=== PATIENT | female | born 1995 | race Caucasian/White ===

== ENCOUNTER 2016-07-11 15:02 | Outpatient (CLI) | payer MEDICAID ==
[~2016-07-11] VITALS: Ht 160 cm; Wt 111.6 kg
[2016-07-11 15:26] VITALS: Ht 160 cm; Wt 111.6 kg
[2016-07-11 15:53] LABS: ADD UMIC YES; URINE BILIRUBIN (Dip) NEGATIVE (NEGATIVE); URINE BLOOD (Dip) NEGATIVE (NEGATIVE); URINE KETONES (Dip) 15 (NEGATIVE); URINE LEUKOCYTE ESTERASE (Dip) 3+ (NEGATIVE); URINE NITRITE (Dip) NEGATIVE (NEGATIVE); URINE TOTAL PROTEIN (Dip) NEGATIVE (NEGATIVE); URINE UROBILINOGEN (Dip) 0.2 E.U./dL (0.1-1.0)
[2016-07-11 16:09] LABS: URINE COLOR YELLOW (YELLOW)
[2016-07-11 16:12] LABS: BACTERIA,URINE MODERATE; SQUAMOUS EPITHELIAL CELL,UR MANY; URINE RBCS NONE SEEN /HPF (0)
--- NOTE | 2016-07-11 16:41 | RADRPT ---
PROCEDURE: US evaluation of amniotic fluid volume. CLINICAL INDICATION: labor at 28 weeks gestational age. TECHNIQUE: Multiple sonographic images of the gravid uterus were obtained utilizing solis-scale luanne ging. Sagittal and transverse images were obtained. The cervix was evaluated with endovaginal sonog sola. The images were reviewed on a PACS workstation. ANDREA was measured. COMPARISON: No prior studies are available for comparison. FINDINGS: There is a single live intrauterine . heart rate is 148 beats per minute. Position is cephalic. Placenta is fundal left grade 1 with no abruption or previa. ANDREA is 22.9 cm. (Normal = 5-20 cm.) Endovaginal cervical length measurement is 4.9 cm. IMPRESSION: 1. ANDREA is 22.9 cm. 2. Endovaginal cervical length is 4.9 cm. RPTAT: QQ .Brock Fernando MD, MD Date Time Electronically viewed and signed by .Brock Fernando MD, on 07/11/2016 16:41 .R/
[2016-07-11] MEDS ORDERED: CEFTRIAXONE 1 GM INJ IM ONE (17:30)
== END 2016-07-11 19:05 | disposition home or self-care (01) ==
LOC: L-D 15:02 → OBT 15:02
PROVIDERS: ATTEND Obstetrics & Gynecology
DX: O60.03 Preterm labor without delivery, third trimester (principal); Z3A.29 29 weeks gestation of pregnancy
CPT/HCPCS: 76815; 76817; 81001; 81003; 82731; J0696

== ENCOUNTER 2016-07-28 12:06 | Outpatient (CLI) | payer MEDICAID ==
[~2016-07-28] VITALS: Ht 160 cm; Wt 111.9 kg
[2016-07-28 12:19] VITALS: Ht 160 cm; Wt 111.9 kg
[2016-07-28] MEDS ORDERED: FERR134T PO (12:22)
[2016-07-28 13:13] LABS: INR 0.95; PROTIME 12.7 Sec (12.2-14.2)
[2016-07-28 13:14] LABS: PARTIAL THROMBOPLASTIN TIME 25.4 Sec (25.0-35.0)
[2016-07-28 13:15] LABS: POTASSIUM 3.6 mmol/L (3.5-5.1)
[2016-07-28 13:17] LABS: BILIRUBIN,INDIRECT 0.3 mg/dl (0-1.1); BILIRUBIN,TOTAL 0.3 mg/dl (0.2-1.3); CREATININE 0.43 mg/dl (0.44-1.00)
[2016-07-28 13:18] LABS: CALCIUM 8.7 mg/dl (8.4-10.2); URIC ACID 2.7 mg/dl (3.1-7.9)
--- NOTE | 2016-07-28 13:26 | RADRPT ---
PROCEDURE: US OB biophysical profile. CLINICAL INDICATION: decreased movements, PIH TECHNIQUE: Multiple sonographic images of the pelvis were obtained. The images were reviewed on a PACS workstation. COMPARISON: 07/11/16 FINDINGS: There is a single viable intrauterine gestation. Cardiac activity is present with 142 beats per min savage. There is a vertex presentation. The placenta is bilobed, anterior/posterior. There is no evidence of placental abruption. There is a normal amount of amniotic fluid with an ANDREA = 11.4 cm. Biophysical profile: movement 2/2 tone 2/2. breathing 2/2 ANDREA 2/2 Total 01/27 RPTAT: AA . IMPRESSION: Normal biophysical profile. . .Cruz German MD, Date Time Electronically viewed and signed by .Cruz German MD, MD on 07/28/2016 13:26 .S/
[2016-07-28 13:30] LABS: ADD UMIC YES; URINE BILIRUBIN (Dip) NEGATIVE (NEGATIVE); URINE BLOOD (Dip) NEGATIVE (NEGATIVE); URINE COLOR LT. YELLOW (YELLOW); URINE GLUCOSE (Dip) NEGATIVE (NEGATIVE); URINE KETONES (Dip) NEGATIVE (NEGATIVE); URINE LEUKOCYTE ESTERASE (Dip) 2+ (NEGATIVE); URINE NITRITE (Dip) NEGATIVE (NEGATIVE); URINE TOTAL PROTEIN (Dip) NEGATIVE (NEGATIVE); URINE UROBILINOGEN (Dip) 0.2 E.U./dL (0.1-1.0)
[2016-07-28 13:54] LABS: URINE RBCS NONE SEEN /HPF (0)
[2016-07-28 13:55] LABS: BACTERIA,URINE MODERATE
[2016-07-28 18:47] LABS: BASOPHILS % 0.4 % (0.0-2.0); EOSINOPHILS # 0.1 10^3/ul (0.0-0.5); EOSINOPHILS % 0.9 % (0.0-7.0); HEMATOCRIT 33.4 % (37.0-47.0); HEMOGLOBIN 11.1 g/dl (12.0-16.0); LYMPHOCYTES # 1.8 10^3/ul (0.8-2.9); LYMPHOCYTES % 21.9 % (18.0-55.0); MEAN CORPUSCULAR HEMOGLOBIN 28.5 pg (29.0-33.0); MEAN CORPUSCULAR HGB CONC 33.4 g/dl (32.0-37.0); MEAN CORPUSCULAR VOLUME 85.5 fl (72.0-104.0); MEAN PLATELET VOLUME 9.3 fl (7.4-10.4); MONOCYTE # 0.4 10^3/ul (0.3-0.9); MONOCYTES % 4.9 % (0.0-13.0); NEUTROPHIL # 5.8 10^3/ul (1.6-7.5); NEUTROPHILS % 71.9 % (30.0-74.0); PLATELET COUNT 264 10^3/UL (140-440); RED CELL DISTRIBUTION WIDTH 14.5 % (11.5-14.5); UNCORRECTED WBC 8.1 10^3/ul (4.8-10.8); WHITE BLOOD COUNT 8.1 10^3/ul (4.8-10.8)
[2016-07-28 18:50] LABS: CONDITION 1
== END 2016-07-28 14:55 | disposition home or self-care (01) ==
LOC: OBT 12:06 → L-D 12:07 → OBT 14:55
PROVIDERS: ATTEND Obstetrics & Gynecology
DX: O13.3 Gestational [pregnancy-induced] hypertension without significant proteinuria, third trimester (principal); O36.8130 Decreased fetal movements, third trimester, not applicable or unspecified; Z3A.00 Weeks of gestation of pregnancy not specified
CPT/HCPCS: 76818; 80053; 81001; 84560; 85025; 85384; 85610; 85730; Z7500; 81003; G0463